=== PATIENT | female | born 1995 | race Caucasian/White ===

== ENCOUNTER 2016-06-23 12:31 | Emergency (ER) | payer BC ==
[2016-06-23 12:54] VITALS: BP 129/80
--- NOTE | 2016-06-23 13:47 | EDM.PDOC ---
ED HPI ENT - General Chief Complaint: ENT Problem Stated Complaint: EXTREME TOOTH PAIN Time Seen by Provider: 06/23/16 13:20 Source: Reports: Patient History Limitations: Reports: No limitations - History of Present Illness INITIAL COMMENTS - FREE TEXT/NARRATIVE: 21-year-old female who has been having dental pain for the past several weeks. It is diffuse, upper and lower and bilateral, mostly molar pain. She had something similar last fall and was seen by the dentist, x-rays were done and she was told she was okay. She was placed on penicillin and had some left and started taking it a few days ago. No fevers or chills. Today she was so uncomfortable at work that her boss wanted her to come in to be seen. Severity: moderate Location: Reports: throat (Diffuse molar dental) Associated symptoms: Denies: fever/chills - Related Data Allergies/ADRs: Allergies Allergy/AdvReac Type Severity Reaction Status Date / Time No Known Allergies Allergy Verified 06/23/16 13:16 Home Meds: Home Meds Penicillin V Potassium 1 tab PO QID 06/23/16 [History] Past Medical History HEENT History: Reports: Sinusitis Social & Family History - Tobacco Use Smoking Status *Q: Former Smoker Years of Tobacco use: 5 Packs/Tins Daily: 1 Used Tobacco, but Quit: Yes Month Tobacco Last Used: 2016 - Caffeine Use Caffeine Use: Reports: Soda - Recreational Drug Use Recreational Drug Use: No ED ROS ENT - Review of Systems Review Of Systems: See Below Constitutional: Denies: fever, chills Respiratory: Denies: shortness of breath Cardiovascular: Denies: Chest pain GI/Abdominal: Denies: Abdominal pain Skin: Reports: no symptoms ED EXAM, ENT - Physical Exam Exam: See Below Exam Limited By: No limitations General Appearance: alert, no apparent distress Mouth/Throat: Other (Examine the molars reveals no acute inflammatory findings. She does have percussion tenderness of the first and second molars bilaterally upper and lower.) Course - Vital Signs Last Recorded V/S: Last Vital Signs Temp 97.9 F 06/23/16 13:18 Pulse 78 06/23/16 13:18 Resp 16 06/23/16 13:18 BP 129/80 06/23/16 13:18 Pulse Ox 100 06/23/16 13:18 - Re-Assessments/Exams Free Text/Narrative Re-Assessment/Exam: 06/23/16 13:45 I'm not sure why this patient would have pain so diffusely without any evidence of inflammation. She seemed to respond penicillin in the past so I refilled her penicillin 500 4 times daily but also added 50 mg of prednisone daily for the next 4-6 days. She should recheck with dentistry next week if not improving. Departure - Departure Time of Disposition: 14:11 Disposition: Home, Self-Care 01 Condition: good Clinical Impression: Pain, dental Referrals: PCP,None [Primary Care Provider] - Forms: ED Department Discharge Care Plan Goals: Take 50 mg of prednisone or 5 pills daily with food, take antibiotic 4 times daily as directed and recheck in 3-5 days if not significant improvement.
== END 2016-06-23 14:11 | disposition home or self-care (01) ==
LOC: JP.ED 12:31
DX: K08.89 Other specified disorders of teeth and supporting structures (principal); Z87.891 Personal history of nicotine dependence
CPT/HCPCS: 99283

== ENCOUNTER 2019-10-19 11:16 | Emergency (ER) | payer SELFPAY ==
[2019-10-19 12:09] VITALS: BP 116/78; PULSE 89
--- NOTE | 2019-10-19 12:45 | EDM.PDOC ---
ED HPI GENERAL MEDICAL PROBLEM - General Chief Complaint: Gastrointestinal Problem Stated Complaint: BLOOD IN STOOL Time Seen by Provider: 10/19/19 11:45 Source of Information: Reports: Patient History Limitations: Reports: No Limitations - History of Present Illness INITIAL COMMENTS - FREE TEXT/NARRATIVE: 24-year-old female with no significant health problems presents to the emergency department complaining of rectal bleeding that she noted today when she went to the bathroom. She noted streaks of blood in her stool as well as mucus streaked with blood. She noted a few drops in the bottom of the toilet bowl. She denies any rectal pain. She has no abdominal cramping or pain. She denies hemorrhoids or fissures. She denies constipation. She has frequent bowel movements up to 3 or 4 a day. Her stools are soft. She has had some problems with frequent bowel movements and mild bloating for the past 3 or 4 years. She has not discussed it with her primary care provider. She is on no medications including antibiotics. She does not use marijuana or street drugs. She uses anal douches and soaps on her rectal area. She denies anal sex. - Related Data Allergies Allergy/AdvReac Type Severity Reaction Status Date / Time No Known Allergies Allergy Verified 10/19/19 12:04 Home Meds: Home Meds NK [No Known Home Meds] 10/19/19 [History] Past Medical History HEENT History: Reports: Sinusitis Endocrine/Metabolic History: Reports: Obesity/BMI 30+ Social & Family History - Tobacco Use Smoking Status *Q: Former Smoker Used Tobacco, but Quit: Yes Month/Year Tobacco Last Used: 01/2019 - Caffeine Use Caffeine Use: Reports: Coffee - Recreational Drug Use Recreational Drug Use: No ED ROS GENERAL - Review of Systems Review Of Systems: See Below Constitutional: Denies: Fever, Chills, Fatigue, Weight Loss GI/Abdominal: Reports: Bloody Stool, Diarrhea, Hematochezia. Denies: Abdominal Pain, Black Stool, Constipation, Hematemesis, Nausea, Vomiting : Reports: No Symptoms Musculoskeletal: Reports: No Symptoms Skin: Reports: No Symptoms Neurological: Reports: No Symptoms Psychiatric: Reports: No Symptoms ED EXAM, GI/ABD - Physical Exam Exam: See Below Exam Limited By: No Limitations General Appearance: Alert, WD/WN, No Apparent Distress Respiratory/Chest: No Respiratory Distress, Lungs Clear Cardiovascular: Normal Peripheral Pulses, Regular Rate, Rhythm GI/Abdominal Exam: Normal Bowel Sounds, Soft, Non-Tender Rectal (Female) Exam: Normal Exam, Other (Has no anal or perirectal rash.). No: Hemorrhoids, Perirectal Abscess, Rectal Fissure Extremities: Normal Inspection Neurological: Alert, Oriented Course - Vital Signs Text/Narrative:: This patient has had GI problems for the past 4 years. She has frequent bowel movements. She noted some blood in her stool this morning. She uses anal douches as well as soap on her rectal area. I see no evidence of hemorrhoids or fissures on the external anus. Digital rectal exam was not done. The exam of the anus was done with a female nurse flame planer. I suggest the patient follow- up with a primary care provider in the near future. She needs a colonoscopy. She was told to avoid anal douches and using any soaps or perfume around her rectal areas. She should avoid anal sex. He may have an inflammatory bowel problem but is not systemically ill or losing weight. No lab work was done today this should be done in the clinic if deemed necessary. The patient agrees to follow-up with primary care and consider colonoscopy. Return to the ER as needed. Last Recorded V/S: Last Vital Signs Temp 36.3 C 10/19/19 12:03 Pulse 89 10/19/19 12:08 Resp 16 10/19/19 12:08 BP 116/78 10/19/19 12:08 Pulse Ox 99 10/19/19 12:08 Departure - Departure Time of Disposition: 12:40 Disposition: DC/[facility] 05 Condition: Good Clinical Impression: Rectal bleeding, Diarrhea - Discharge Information *PRESCRIPTION DRUG MONITORING PROGRAM REVIEWED*: No *COPY OF PRESCRIPTION DRUG MONITORING REPORT IN PATIENT EMILEE: No Instructions: Chronic Diarrhea Referrals: PCP,None [Primary Care Provider] - Additional Instructions: Avoid anal douches and using soaps on your rectum. Follow-up with your primary care provider in the clinic and consider getting a colonoscopy for your rectal bleeding. Return to the emergency room if you have increased problems or concerns. Sepsis Event Note (ED) - Evaluation Sepsis Screening Result: No Definite Risk - Focused Exam Vital Signs: Vital Signs Temp Pulse Resp BP Pulse Ox 10/19/19 12:08 89 16 116/78 99 10/19/19 12:03 36.3 C 91 16 138/92 H 98 10/19/19 11:39 36.3 C 91 16 138/92 H 98
== END 2019-10-19 12:50 | disposition home or self-care (01) ==
LOC: JP.ED 11:16
DX: K62.5 Hemorrhage of anus and rectum (principal); R19.7 Diarrhea, unspecified; E66.9 Obesity, unspecified; Z87.891 Personal history of nicotine dependence; Z68.41 Body mass index [BMI] 40.0-44.9, adult
CPT/HCPCS: 99283; 99284

== ENCOUNTER 2023-01-07 05:45 | Emergency (ER) | payer MEDICAID ==
[2023-01-07 05:51] VITALS: BP 153/94; PULSE 95
[2023-01-07] MEDS ORDERED: Cetirizine 10 MG Tab PO ONE (06:17)
[2023-01-07] MEDS ORDERED: methylPREDNISolone Sodium Succinate 125 MG/2 ML SDV IM ONE (06:17)
[2023-01-07] MEDS ORDERED: Ondansetron 4 MG Tab.DIS PO ONE (06:33)
== END 2023-01-07 06:45 | disposition home or self-care (01) ==
LOC: JP.ED 05:45
DX: L50.9 Urticaria, unspecified (principal); J30.2 Other seasonal allergic rhinitis
CPT/HCPCS: 96372; 99283; A9270; J2930